=== PATIENT | male | born 1960 | race Caucasian/White ===

== ENCOUNTER 2022-12-25 15:13 | Emergency (ER) | payer OTHER ==
[2022-12-25] MEDS ORDERED: DIPHTH,PERTUSS(ACELL),TET 0.5 ML DISP.SYRIN IM ONE (15:25)
[2022-12-25] MEDS ORDERED: LIDOCAINE HCL 2% (50ML VIAL) SQ ONE (16:40)
[2022-12-25] MEDS ORDERED: LIDOCAINE HCL 2% (20ML MULTI-DOSE VIAL) ONE (16:41)
[2022-12-25] MEDS ORDERED: CEPHALEXIN MONOHYDRATE 500 MG CAPSULE (UD) PO ONE (17:11)
[2022-12-25] MEDS ORDERED: CEPHALEXIN MONOHYDRATE 500 MG CAPSULE (UD) ONE (17:13)
[2022-12-25 17:20] VITALS: RESP 18; TEMP 98.3
[2022-12-25 17:50] VITALS: BP 120/75; PULSE 78; BMI 25.8
== END 2022-12-25 17:54 | disposition home or self-care (01) ==
LOC: FER 15:13
DX: S61.200A Unspecified open wound of right index finger without damage to nail, initial encounter (principal); W27.4XXA Contact with kitchen utensil, initial encounter
CPT/HCPCS: 73130-TC-RT-FY; 99283-25

== ENCOUNTER 2023-04-02 11:24 | Emergency (ER) | payer OTHER ==
[2023-04-02] MEDS ORDERED: METHOCARBAMOL 500 MG TABLET PO STA (11:53)
[2023-04-02] MEDS ORDERED: ACETAMINOPHEN 500 MG TABLET (FP) PO ONE (11:54)
[2023-04-02 12:04] VITALS: BP 109/69; PULSE 65; RESP 17; TEMP 98; BMI 27.3
[2023-04-02] MEDS ORDERED: ACETAMINOPHEN 500 MG TABLET (FP) ONE (12:23)
[2023-04-02] MEDS ORDERED: METHOCARBAMOL 500 MG TABLET ONE (12:23)
== END 2023-04-02 16:23 | disposition home or self-care (01) ==
LOC: FER 11:24
DX: M54.50 Low back pain, unspecified (principal); G93.0 Cerebral cysts; R41.0 Disorientation, unspecified; W01.0XXA Fall on same level from slipping, tripping and stumbling without subsequent striking against object, initial encounter; Y93.89 Activity, other specified
CPT/HCPCS: 70450-TC; 70551-TC; 71101-TC-LT-FY; 81003; 99285-25